=== PATIENT | male | born 1960 | race Caucasian/White ===

== ENCOUNTER 2017-11-30 20:14 | Emergency (ER) | payer OTHER ==
[2017-11-30 20:21] VITALS: BP 120/72; PULSE 83; TEMP 97.6; BMI 24.0
--- NOTE | 2017-11-30 20:21 | PDOC ---
Rapid Medical Evaluation Chief Complaint: Lightheaded Time Seen by Provider: 11/30/17 20:15 Medical Evaluation: 11/30/17 20:16 The patient presents with a chief complaint of: Lightheadedness and palpitations today. Pt. states he has been taking his heart rate with his apple watch and he states his heart rate has been in the 100's-120's. States he has a fluttering sensation in his chest. PMH of asthma. I have performed a brief in-person evaluation of this patient; Pertinent physical exam findings: ambulatory, in no respiratory distress. Afebrile. Scattered rhonchi on exam I have ordered the following: CBC, CMP, Troponin, PT/INR, EKG, CXR The patient will proceed to the ED for further evaluation.
[2017-11-30 20:48] LABS: EOS % 6.3 % (0-4.5); HEMATOCRIT 46.2 % (35.4-49); HEMOGLOBIN 15.5 GM/dL (11.7-16.9); LYMPH % 24.3 % (8-40); MCH 27.9 pg (25.7-33.7); MCHC 33.6 g/dl (32.0-35.9); MEAN PLT VOLUME 8.7 fl (7.5-11.1); MONO % 7.9 % (3.8-10.2); NEUT % 60.5 % (42.8-82.8); PLATELET COUNT 271 K/MM3 (134-434); RBC 5.56 M/mm3 (4.00-5.60); RDW 13.5 % (11.9-15.9); WHITE BLOOD COUNT 8.9 K/mm3 (4.0-10.0)
[2017-11-30 21:01] LABS: INR 1.04 (0.82-1.09); PROTHROMBIN TIME (PATIENT) 11.8 SEC (9.98-11.88)
--- NOTE | 2017-11-30 21:01 | PDOC ---
History of Present Illness - General History Source: Patient Exam Limitations: No Limitations - History of Present Illness Initial Comments: 11/30/17 21:10 The patient is a 57 year old male, with a significant past medical history of GERD, asthma, and hyperlipidemia, who presents to the emergency department complaining of chest discomfort since earlier today. The patient describes his discomfort as a burning sensation. He denies any associated diaphoresis, palpitations, lower extremity edema, or shortness of breath. Patient reports his symptoms are exacerbated when taking deep breaths, and alleviated when lying flat or at rest. He reports blurry vision, dizziness, lightheadedness, and dry cough, but denies any fever, chills, or headache. Patient reports recent added stressors at work. Patient reports associated diarrhea, which he states is typical of him when hes under stress. He denies any abdominal pain, nausea, vomiting, or constipation. He denies any dysuria, hematuria, frequency, or urgency. He denies any recent travel or sick contacts. Patient reports he was monitoring his heart rate with his watch, which gave him reads between 102- 120, and subsequently increased his anxiety. Allergies: NDKA Past Surgical History: None reported Social History: Non smoker. No ETOH or recreational drug use. <Roge Vásquez - Last Filed: 11/30/17 21:32> - General History Source: Patient <ChelsyChacorta shaver - Last Filed: 11/30/17 22:00> - General Chief Complaint: Palpitations Stated Complaint: LIGHTHEADED Time Seen by Provider: 11/30/17 20:15 Past History <Roge Vásquez - Last Filed: 11/30/17 21:32> - Past Medical History COPD: No - Suicide/Smoking/Psychosocial Hx Smoking History: Former smoker Have you smoked in the past 12 months: No Information on smoking cessation initiated: No Hx Alcohol Use: No Drug/Substance Use Hx: No Substance Use Type: None <Chacorta Mullen - Last Filed: 11/30/17 22:00> - Past Medical History Allergies/Adverse Reactions: Allergies Allergy/AdvReac Type Severity Reaction Status Date / Time No Known Allergies Allergy Verified 11/30/17 20:21 Home Medications: Ambulatory Orders Albuterol Sulfate Inhaler - [Ventolin Hfa Inhaler -] 2 inh PO Q6H PRN 11/30/17 Review of Systems - Review of Systems Able to Perform ROS?: Yes Comments:: 11/30/17 21:10 CONSTITUTIONAL: Absent: fever, no chills, no fatigue EYES: Absent: visual changes ENT: Absent: ear pain, no sore throat CARDIOVASCULAR: Present: chest burning Absent: no palpitations RESPIRATORY: Present: cough Absent: no SOB GI: Present: diarrhea Absent: abdominal pain, no nausea, no vomiting, no constipation GENITOURINARY: Absent: dysuria, no frequency, no hematuria MUSCULOSKELETAL: Absent: back pain, no arthralgia, no myalgia SKIN: Absent: rash NEURO: Present: Dizziness, lightheadedness Absent: headache PSYCH: Present: Anxiety <Vásquez,Giomilsy - Last Filed: 11/30/17 21:32> *Physical Exam - Vital Signs Last Vital Signs Temp Pulse Resp BP Pulse Ox 97.6 F 83 18 120/72 100 11/30/17 20:17 11/30/17 20:17 11/30/17 20:17 11/30/17 20:17 11/30/17 20:17 - Physical Exam Comments: 11/30/17 21:11 GENERAL: Well developed, well nourished. Awake and alert. No acute distress. HEENT: Normocephalic, atraumatic. PERRLA, EOMI. No conjunctival pallor. Sclera are non- icteric. Moist mucous membranes. Oropharynx is clear. NECK: Supple. Full ROM. No JVD. Carotid pulses 2+ and symmetric, without bruits. No thyromegaly. No lymphadenopathy. CARDIOVASCULAR: Regular rate and rhythm. No murmurs, rubs, or gallops. Distal pulses are 2+ and symmetric. PULMONARY: No evidence of respiratory distress. Lungs clear to auscultation bilaterally. No wheezing, rales or rhonchi. ABDOMINAL: Soft. Non-tender. Non-distended. No rebound or guarding. No organomegaly. Normoactive bowel sounds. MUSCULOSKELETAL Normal range of motion at all joints. No bony deformities or tenderness. No CVA tenderness. EXTREMITIES: No cyanosis. No clubbing. No edema. No calf tenderness. SKIN: Warm and dry. Normal capillary refill. No rashes. No jaundice. NEUROLOGICAL: Alert, awake, appropriate. Cranial nerves 2-12 intact. No deficits to light touch and temperature in face, upper extremities and lower extremities. No motor deficits in the in face, upper extremities and lower extremities. Normoreflexic in the upper and lower extremities. Normal speech. Toes are down- going bilaterally. Gait is normal without ataxia. PSYCHIATRIC: Cooperative. Good eye contact. Appropriate mood and affect. <Roge Vásquez - Last Filed: 11/30/17 21:32> - Vital Signs Last Vital Signs Temp Pulse Resp BP Pulse Ox 97.6 F 83 18 120/72 100 11/30/17 20:17 11/30/17 20:17 11/30/17 20:17 11/30/17 20:17 11/30/17 20:17 <Chacorta Mullen - Last Filed: 11/30/17 22:00> Heart Score/ECG Review - ECG Intrepretation Comment:: 11/30/17 21:32 Vent Rate: 76 bpm IMPRESSION: Normal sinus rhythm. Possible left atrial enlargement. Septal infarct. <Roge Vásquez - Last Filed: 11/30/17 21:32> ED Treatment Course - LABORATORY CBC & Chemistry Diagram: 11/30/17 20:34 11/30/17 20:34 - ADDITIONAL ORDERS Additional order review: 11/30/17 20:34 RBC 5.56 MCV 83.0 MCHC 33.6 RDW 13.5 MPV 8.7 Neutrophils % 60.5 Lymphocytes % 24.3 Monocytes % 7.9 Eosinophils % 6.3 H Basophils % 1.0 <Roge Vásquez - Last Filed: 11/30/17 21:32> - LABORATORY CBC & Chemistry Diagram: 11/30/17 20:34 11/30/17 20:34 - ADDITIONAL ORDERS Additional order review: 11/30/17 20:34 RBC 5.56 MCV 83.0 MCHC 33.6 RDW 13.5 MPV 8.7 Neutrophils % 60.5 Lymphocytes % 24.3 Monocytes % 7.9 Eosinophils % 6.3 H Basophils % 1.0 <Chacorta Mullen - Last Filed: 11/30/17 22:00> Medical Decision Making - Medical Decision Making 11/30/17 21:59 Dr. Mullen: The scribe's documentation has been prepared under my direction and personally reviewed by me in its entirery. I confirm that the note above accurately reflects all work, treatment, procedures, and medical decision making performed by me. <Chacorta Mullen - Last Filed: 11/30/17 22:00> *DC/Admit/Observation/Transfer - Attestations Scribe Attestion: 11/30/17 21:12 Documentation prepared by Roge Vásquez, acting as medical transcriptionist for Chacorta Mullen DO. <Roge Vásquez - Last Filed: 11/30/17 21:32> - Discharge Dispostion Admit: No <Chacorta Mullen - Last Filed: 11/30/17 22:00> Diagnosis at time of Disposition: Lightheadedness, Palpitations - Discharge Dispostion Disposition: HOME Condition at time of disposition: Stable - Referrals Referrals: Ced Martinez MD [Primary Care Provider] - - Patient Instructions Printed Discharge Instructions: DI for Dizziness-Nonvertigo, DI for Palpitations Additional Instructions: Please continue your usual medications. Follow up with your doctor if symptoms become worse. - Post Discharge Activity
[2017-11-30 21:38] LABS: ALBUMIN 4.2 g/dl (3.4-5.0); ALK PHOS 56 U/L (45-117); ANION GAP 6 (8-16); BILIRUBIN,TOTAL 0.6 mg/dL (0.2-1.0); BLOOD UREA NITROGEN 14 mg/dL (7-18); CHLORIDE 105 mmol/L (98-107); CO2 28 mmol/L (21-32); GLUCOSE,RANDOM 132 mg/dL (74-106); POTASSIUM 3.7 mmol/L (3.5-5.1); SGOT/AST 21 U/L (15-37); SGPT/ALT 30 U/L (12-78); SODIUM 139 mmol/L (136-145); TOT PROT 7.6 g/dl (6.4-8.2)
--- NOTE | 2017-12-05 13:27 | EKG ---
Test Reason : Blood Pressure : / mmHG Vent. Rate : 076 BPM Atrial Rate : 076 BPM P-R Int : 130 ms QRS Dur : 084 ms QT Int : 382 ms P-R-T Axes : 077 077 070 degrees QTc Int : 429 ms NORMAL SINUS RHYTHM POSSIBLE LEFT ATRIAL ENLARGEMENT SEPTAL INFARCT , AGE UNDETERMINED ABNORMAL ECG WHEN COMPARED WITH ECG OF 29-JUL-2003 21:40, SEPTAL INFARCT IS NOW PRESENT Confirmed by MD Rl, Mariano ([id number]) on 12/05/2017 1:27:03 PM Referred By: Confirmed By:Mariano Shine MD
== END 2017-11-30 22:02 | disposition home or self-care (01) ==
LOC: JER 20:14
DX: R07.89 Other chest pain (principal); R00.2 Palpitations; J45.990 Exercise induced bronchospasm; K21.9 Gastro-esophageal reflux disease without esophagitis; E78.5 Hyperlipidemia, unspecified
CPT/HCPCS: 36415; 71046-TC-FY; 80053; 82550; 84484; 85025; 85610; 93005; 93010; 99283-25